=== PATIENT | female | born 1990 | race Caucasian/White ===

== ENCOUNTER 2022-12-07 14:56 | Outpatient (CLI) | payer BC, SELFPAY ==
--- NOTE | 2022-12-07 15:00 | CRLHL7_ITS ---
For Patients: As a result of the Century Cures Act, medical imaging exams and procedure reports are released immediately into your electronic medical record. You may view this report before your referring provider. If you have questions, please contact your health care provider. INDICATION: First trimester scan, establish dates. COMPARISON: None. TECHNIQUE: Real-time ochoa-scale imaging of the pelvis was performed. FINDINGS: Sonographic imaging demonstrates a single living intrauterine gestation. The embryo demonstrates a regular cardiac rate measuring 183 beats per minute. The embryo`s crown-rump length measurement of 1.9 cm corresponds to a gestational age of 8 weeks 3 days with a sonographic due date of 07/16/2023. There is a normal-appearing yolk sac. There are no gross abnormalities noted within the embryo at this early state of development. The gestational sac has a normal appearance. There is no evidence of a perigestational hemorrhage. The amount of fluid within the sac appears appropriate for gestational age. The cervix is closed. The myometrium appears normal. Corpus luteal cyst left ovary. Right ovary not visualized. There are no suspicious fluid collections noted in the cul-de-sac. IMPRESSION: Normal first trimester OB ultrasound exam. Gestational age calculated at 8 weeks 3 days with a sonographic due date of 07/16/2023. Dictated by Juan Pablo Ellis MD @ 12/08/2022 8:53:20 AM (Electronically Signed)
== END 2022-12-07 14:57 | disposition home or self-care (01) ==
LOC: US 14:57
PROVIDERS: Visit Provider Registered Nurse
DX: Z34.91 Encounter for supervision of normal pregnancy, unspecified, first trimester (principal); Z3A.08 8 weeks gestation of pregnancy
CPT/HCPCS: 76817; 82565; 82570; 84156; 84450; 84460; 84520; 86703; 86803; 86850; 86900; 86901; 87086; 87340; 87491; 87591

== ENCOUNTER 2022-12-07 16:24 | Outpatient (CLI) | payer BC, SELFPAY ==
[2022-12-07 21:28] LABS: Chlamydia DNA Amplified* NOT DETECTED (No Detected); GC DNA Amplified* NOT DETECTED (No Detected)
== END 2022-12-07 16:25 | disposition home or self-care (01) ==
PROVIDERS: Visit Provider Registered Nurse
DX: Z34.91 Encounter for supervision of normal pregnancy, unspecified, first trimester (principal); Z3A.08 8 weeks gestation of pregnancy
CPT/HCPCS: 82565; 82570; 84156; 84450; 84460; 84520; 86592; 86703; 86762; 86787; 86803; 86850; 86900; 86901; 87086; 87340; 87491; 87591

== ENCOUNTER 2023-02-25 12:04 | Outpatient (CLI) | payer BC, SELFPAY ==
--- NOTE | 2023-02-25 12:15 | CRLHL7_ITS ---
For Patients: As a result of the Century Cures Act, medical imaging exams and procedure reports are released immediately into your electronic medical record. You may view this report before your referring provider. If you have questions, please contact your health care provider. INDICATION: Evaluate anatomy. COMPARISON: 12/07/2022 TECHNIQUE: Real time ochoa scale imaging of the fetus was performed as well as color Doppler analysis of the umbilical vessels. FINDINGS: Sonographic imaging demonstrates a single living intrauterine gestation. Fetus demonstrates a regular cardiac rate of 145 beats per minute. Fetus has a variable position. The placenta lies anteriorly without evidence of placenta previa. The edge of the placenta is located 4 cm from the internal cervical os. Amniotic fluid volume appears normal. Single deepest vertical pocket: 4.6 cm. The cervix is closed and measures 4.1 cm in length. The composite ultrasound gestational age is calculated at 20 weeks 3 days with an estimated sonographic due date of 07/12/2023. The estimated weight is 381 grams which lies at the 88th %. The following biometric measurements were obtained: Biparietal diameter: 4.6 cm/20 weeks 0 days 48th% Head circumference: 17.5 cm/20 weeks 0 days 43rd% Abdominal circumference: 15.8 cm/20 weeks 6 days 75th% Femur length: 3.5 cm/21 weeks 0 day 78th% The HC/AC ratio measures: 1.11 range (1.07-1.25) On anatomic survey, there is a normal appearance of the cerebral ventricles, cavum septi pellucidi, cisterna magna and cerebellum. The nose and lips appear normal. The facial profile is not well visualized due to position. The cervical, thoracic and lumbar spine are well visualized and appear normal. There is a normal four-chamber heart view. The left and right ventricular outflow tracts are incompletely visualized. The diaphragm and stomach appear normal. The kidneys and bladder also appear normal. There is a normal three-vessel cord and cord insertion site. The four extremities appear normal. IMPRESSION: Concordance of clinical and sonographic dating. Incomplete visualization of the profile and outflow tracts. Remainder of the anatomic survey is normal. Short-term follow-up recommended. Dictated by Juan Pablo Ellis MD @ 02/25/2023 3:20:27 PM (Electronically Signed)
== END 2023-02-25 12:05 | disposition home or self-care (01) ==
LOC: US 12:05
PROVIDERS: Visit Provider Obstetrics & Gynecology
DX: Z34.91 Encounter for supervision of normal pregnancy, unspecified, first trimester (principal); Z3A.20 20 weeks gestation of pregnancy
CPT/HCPCS: 76805; 82565; 82570; 84156; 84450; 84460; 84520; 84550

== ENCOUNTER 2023-03-18 12:57 | Outpatient (CLI) | payer BC, SELFPAY ==
--- NOTE | 2023-03-18 13:00 | CRLHL7_ITS ---
For Patients: As a result of the Century Cures Act, medical imaging exams and procedure reports are released immediately into your electronic medical record. You may view this report before your referring provider. If you have questions, please contact your health care provider. INDICATION: elevation of levels of liver transaminase COMPARISON: none TECHNIQUE: Real time ochoa scale imaging and color Doppler analysis was performed of the right upper quadrant. FINDINGS: The liver measures 21.4 cm. No intrahepatic mass. Mildly coarsened hepatic echotexture. There is a normal appearance of the hepatic IVC and proximal abdominal aorta. There is no evidence of ascites. The gallbladder is of normal size and there is no evidence of intraluminal stones or sludge. The gallbladder wall measures 2 mm in thickness. The common bile duct is of normal size and measures 4 mm in diameter at the level of the criss hepatis. The visualized pancreas appears normal. There is no evidence of a stone or hydronephrosis within the right kidney. The right kidney measures 12.3 cm in length. IMPRESSION: Mild hepatic steatosis and hepatomegaly. Normal gallbladder. Dictated by Juan Pablo Ellis MD @ 03/18/2023 2:53:12 PM (Electronically Signed)
--- NOTE | 2023-03-18 14:00 | CRLHL7_ITS ---
For Patients: As a result of the Century Cures Act, medical imaging exams and procedure reports are released immediately into your electronic medical record. You may view this report before your referring provider. If you have questions, please contact your health care provider. INDICATION: Follow-up missed anatomy COMPARISON: 02/25/2023 TECHNIQUE: Real-time ochoa-scale imaging of the pelvis was performed. FINDINGS: Normal profile. heart rate 147 beats per minute. Amniotic fluid normal with single deepest pocket 4.7 cm. Placenta anterior. Normal LVOT and RVOT. IMPRESSION: Normal profile and outflow tracts. Dictated by Juan Pablo Ellis MD @ 03/18/2023 2:48:42 PM (Electronically Signed)
== END 2023-03-18 12:58 | disposition home or self-care (01) ==
LOC: US 12:58
PROVIDERS: Visit Provider Obstetrics & Gynecology
DX: O36.8390 Maternal care for abnormalities of the fetal heart rate or rhythm, unspecified trimester, not applicable or unspecified (principal); R74.01 Elevation of levels of liver transaminase levels; K76.0 Fatty (change of) liver, not elsewhere classified; R16.0 Hepatomegaly, not elsewhere classified; E11.9 Type 2 diabetes mellitus without complications; I10 Essential (primary) hypertension
CPT/HCPCS: 76705; 76816; 82570; 84156; 84450; 84460

== ENCOUNTER 2023-04-14 14:05 | Outpatient (CLI) | payer BC, SELFPAY | END 2023-04-14 14:06 | disposition home or self-care (01) | LOC: NFLDREF 04-15 13:11 | PROVIDERS: Visit Provider Obstetrics & Gynecology | DX: Z34.90 Encounter for supervision of normal pregnancy, unspecified, unspecified trimester (principal); R30.9 Painful micturition, unspecified | CPT/HCPCS: 86592; 87086 ==

== ENCOUNTER 2023-04-29 14:02 | Outpatient (CLI) | payer BC, SELFPAY ==
--- NOTE | 2023-04-29 14:00 | CRLHL7_ITS ---
For Patients: As a result of the Century Cures Act, medical imaging exams and procedure reports are released immediately into your electronic medical record. You may view this report before your referring provider. If you have questions, please contact your health care provider. INDICATION: Third trimester scan, evaluate growth. COMPARISON: 02/25/2023 TECHNIQUE: Real time ochoa scale imaging of the fetus was performed. FINDINGS: Sonographic imaging demonstrates a single living intrauterine gestation. Fetus demonstrates a regular cardiac rate of 141 beats per minute. Fetus has a transverse position. The placenta lies anteriorly. Amniotic fluid volume appears normal and there is a single deepest vertical pocket: 6.7 cm. The estimated weight is 1475gm which lies at the 71st %. On the prior OB ultrasound exam dated 02/25/2023 the estimated weight was at the 88th%. BPD 67th percentile. HC 81st percentile. AC 64th percentile. FL 61st percentile. The HC/AC ratio measures 1.11 range (0.97-1.19). IMPRESSION: Sonographic gestational age 30 weeks 1 day and sonographic due date 07/07/2023. Sonographic age 8 days ahead of the clinical age. Estimated weight 71st percentile. Abdominal circumference 64th percentile. Dictated by Juan Pablo Ellis MD @ 05/03/2023 10:10:12 AM (Electronically Signed)
== END 2023-04-29 14:03 | disposition home or self-care (01) ==
LOC: US 14:03
PROVIDERS: Visit Provider Obstetrics & Gynecology
DX: Z34.93 Encounter for supervision of normal pregnancy, unspecified, third trimester (principal); Z3A.30 30 weeks gestation of pregnancy
CPT/HCPCS: 76816; 82565; 82570; 84156; 84450; 84460; 84520

== ENCOUNTER 2023-05-19 12:07 | Outpatient (CLI) | payer BC, SELFPAY ==
--- NOTE | 2023-05-19 12:15 | CRLHL7_ITS ---
For Patients: As a result of the Century Cures Act, medical imaging exams and procedure reports are released immediately into your electronic medical record. You may view this report before your referring provider. If you have questions, please contact your health care provider. INDICATION: GESTATIONAL HTN COMPARISON: 04/29/2023 TECHNIQUE: Real time ochoa scale imaging of the fetus was performed. Without non-stress testing. FINDINGS: Sonographic imaging demonstrates a single living intrauterine gestation. Fetus demonstrates a regular cardiac rate of 142 beats per minute. Fetus has a vertex position. The amniotic fluid volume appears normal and there is a single deepest pocket measurement of 7.2 cm. The fetus was active and demonstrated normal breathing movements. There was normal flexion and extension of the trunk and extremities. IMPRESSION: Normal biophysical profile score of 8 out of 8. Dictated by Juan Pablo Ellis MD @ 05/19/2023 12:52:00 PM (Electronically Signed)
== END 2023-05-19 12:08 | disposition home or self-care (01) ==
LOC: US 12:08
PROVIDERS: Visit Provider Obstetrics & Gynecology
DX: O13.9 Gestational [pregnancy-induced] hypertension without significant proteinuria, unspecified trimester (principal)
CPT/HCPCS: 76819

== ENCOUNTER 2023-05-27 12:58 | Outpatient (CLI) | payer BC, SELFPAY ==
--- NOTE | 2023-05-27 13:00 | CRLHL7_ITS ---
For Patients: As a result of the Century Cures Act, medical imaging exams and procedure reports are released immediately into your electronic medical record. You may view this report before your referring provider. If you have questions, please contact your health care provider. INDICATION: GESTATIONAL HTN COMPARISON: 05/19/2023 TECHNIQUE: Real time ochoa scale imaging of the fetus was performed. Without non-stress testing. FINDINGS: Sonographic imaging demonstrates a single living intrauterine gestation. Fetus demonstrates a regular cardiac rate of 147 beats per minute. Fetus has a breech position. The amniotic fluid volume appears normal and there is a single deepest pocket measurement of 6.2 cm. The fetus was active and demonstrated normal breathing movements. There was normal flexion and extension of the trunk and extremities. IMPRESSION: Normal biophysical profile score of 8 out of 8. Dictated by Juan Pablo Ellis MD @ 05/27/2023 2:06:21 PM (Electronically Signed)
== END 2023-05-27 12:59 | disposition home or self-care (01) ==
LOC: US 12:58
PROVIDERS: Visit Provider Obstetrics & Gynecology
DX: O10.919 Unspecified pre-existing hypertension complicating pregnancy, unspecified trimester (principal)
CPT/HCPCS: 76819

== ENCOUNTER 2023-06-03 12:58 | Outpatient (CLI) | payer BC, SELFPAY ==
--- NOTE | 2023-06-03 13:00 | CRLHL7_ITS ---
For Patients: As a result of the Century Cures Act, medical imaging exams and procedure reports are released immediately into your electronic medical record. You may view this report before your referring provider. If you have questions, please contact your health care provider. INDICATION: Elevated BMI TECHNIQUE: Real time ochoa scale imaging of the fetus was performed. COMPARISON: 05/27/2023 FINDINGS: Sonographic imaging demonstrates a single living intrauterine gestation. Fetus demonstrates a regular cardiac rate of 134 beats per minute. Fetus has a vertex position. The placenta lies anteriorly. Amniotic fluid volume appears normal and there is a single deepest pocket of 7.3 cm. The estimated weight is 2669gm which lies at the 83rd %. On the prior OB ultrasound dated 04/29/2023 the estimated weight was at the 71st percentile. BPD 85th percentile. HC 64th percentile. AC 92nd percentile. FL 54th percentile. The fetus was active and demonstrated normal breathing movements. There was normal flexion and extension of the trunk and extremities. IMPRESSION: Normal biophysical profile score 8/8. Sonographic gestational age 35 weeks 3 days and sonographic due date 07/05/2023. Sonographic age 10 days ahead of the clinical age. Estimated age 83rd percentile. Abdominal circumference 92nd percentile. Dictated by Juan Pablo Ellis MD @ 06/03/2023 2:11:02 PM (Electronically Signed)
== END 2023-06-03 12:59 | disposition home or self-care (01) ==
LOC: US 12:59
PROVIDERS: Visit Provider Obstetrics & Gynecology
DX: O10.913 Unspecified pre-existing hypertension complicating pregnancy, third trimester (principal); O99.213 Obesity complicating pregnancy, third trimester; Z3A.35 35 weeks gestation of pregnancy
CPT/HCPCS: 76816; 76819

== ENCOUNTER 2023-06-10 13:00 | Outpatient (CLI) | payer BC, SELFPAY ==
--- NOTE | 2023-06-10 13:00 | CRLHL7_ITS ---
For Patients: As a result of the Century Cures Act, medical imaging exams and procedure reports are released immediately into your electronic medical record. You may view this report before your referring provider. If you have questions, please contact your health care provider. INDICATION: Chronic HTN, obesity COMPARISON: 06/03/2023 TECHNIQUE: Real time ochoa scale imaging of the fetus was performed. Without non-stress testing. FINDINGS: Sonographic imaging demonstrates a single living intrauterine gestation. Fetus demonstrates a regular cardiac rate of 133 beats per minute. Fetus has a vertex position. The amniotic fluid volume appears upper limits of normal versus mild polyhydramnios and there is a single deepest pocket measurement of 9.2 cm. TREVON 26.5 cm. The fetus was active and demonstrated normal breathing movements. There was normal flexion and extension of the trunk and extremities. IMPRESSION: Normal biophysical profile score of 8 out of 8. Upper limits of normal versus mild polyhydramnios TREVON 26.5 cm. Dictated by Juan Pablo Ellis MD @ 06/10/2023 2:13:43 PM (Electronically Signed)
== END 2023-06-10 13:01 | disposition home or self-care (01) ==
LOC: US 13:00
PROVIDERS: Visit Provider Obstetrics & Gynecology
DX: O10.919 Unspecified pre-existing hypertension complicating pregnancy, unspecified trimester (principal); O99.210 Obesity complicating pregnancy, unspecified trimester
CPT/HCPCS: 76819; 82565; 82570; 82947; 84156; 84450; 84460; 84520

== ENCOUNTER 2023-06-24 13:01 | Outpatient (CLI) | payer BC, SELFPAY ==
--- NOTE | 2023-06-24 13:00 | US_ITS ---
Patient: TWAN BONNER Facility:?[facility] Patient ID:?[id number] Site Patient ID:?[id number]. Site :?[id number] Study:?US-OB Pelvis OB BPP-06/24/2023 1:44:29 PM Ordering Physician:MAXIMILIAN DAVILA Final Report: INDICATION: Chronic hypertension and obesity TECHNIQUE: Limited transabdominal two-dimensional ochoa-scale ultrasound examination. COMPARISON: None FINDINGS: There is a living fetus oblique breech lie with gestational age of 37 weeks by LMP and EDC of 07/15/2023. The biophysical profile score is 8/8. The heart rate is measured at 140 beats per minute and the rhythm appears regular. Polyhydramnios is demonstrated with an TREVON of 32 cm as opposed to a reported value of 27 cm on the prior study 06/10/2023. The placenta is anterior and superior to the cervical os. There is no evidence of previa. IMPRESSION: 1. Living fetus in oblique breech lie with gestational age of 37 weeks by LMP and EDC of 07/15/2023. 2. Biophysical profile score is 8/8. 3. Polyhydramnios with TREVON of 32 cm as opposed to 27 cm on 06/10/2023. Dictated by Sudhakar Sánchez MD @ 06/25/2023 6:10:49 AM Signed by:?Sudhakar Sánchez MD @06/25/2023 6:10:49 AM (Electronic Signature)
== END 2023-06-24 13:02 | disposition home or self-care (01) ==
LOC: US 13:02
PROVIDERS: Visit Provider Obstetrics & Gynecology
DX: O10.913 Unspecified pre-existing hypertension complicating pregnancy, third trimester (principal); O99.213 Obesity complicating pregnancy, third trimester; Z3A.37 37 weeks gestation of pregnancy
CPT/HCPCS: 76819; 82565; 82570; 84156; 84450; 84460; 84520; 87081; 87653

== ENCOUNTER 2023-06-30 08:40 | Inpatient (IN) | payer BC, SELFPAY ==
[2023-06-30] VITALS (26 sets, daily range): BP systolic 95–143; BP diastolic 57–90; PULSE 59–144; RESP 16; TEMP 36.4–37; O2SAT 81–98; BMI 42.7
[2023-06-30] MEDS: TERBUTALINE 1 MG/ML INJ 0.25 MG SUBCUT (09:49)
[2023-06-30 10:59] LABS: Hemoglobin* 13.6 gm/dL (12.0-16.0); Mean Corpuscular HGB Conc 34 gm/dL (32-36); Mean Corpuscular Hemoglobin 30 pg (26-34); Mean Corpuscular Volume 89 fL (80-100); Platelet Count* 155 K/uL (140-440); Red Blood Count 4.49 m/uL (4.00-5.20); White Blood Count* 10.76 K/uL (4.50-11.00)
[2023-06-30 11:05] LABS: Slide Review Reflex No
[2023-06-30 11:06] LABS: Alanine Aminotransferase* 14 U/L (4-35); Aspartate Amino Transferase* 24 U/L (12-35); Blood Urea Nitrogen* 9 mg/dL (5-24); Creatinine* 0.4 mg/dL (0.5-1.5); Est. Creatinine Clearance* 212.97; Estimated Glomerular Filt Rate 136 ml/min
--- NOTE | 2023-06-30 11:19 | P.LDBA_ITS ---
Subjective History of Present Illness Narrative: Patient is being admitted to Labor and Delivery for delivery. She is a 33 year old -0-0-1 woman at 37 weeks, 6 days gestation. Fetus is in breech presentation. She had an unsuccessful attempt at external cephalic version today. She also has chronic hypertension complicating , requiring an increase in labetalol dose last week to 200 mg twice a day. On this dose, her blood pressures have been acceptably managed. Given the diagnosis of chronic hypertension complicating , requiring adjustment of medications, our plan is for primary low-transverse today. Her full history and physical was dictated by Dr. Jeong on 06/24/2023. Please see this for details. Specific Issues/Plans : Ismael Daughter: Jenn, 3 yrs old MaterniT 21: negative. It's a girl!! 1. BMI 39.4 A1c: 5.2 2. History of gestational hypertension Baseline preeclampsia labs normal. P/C 0.00 Rec. baby aspirin at 12 weeks 3. Chronic HTN Diagnosed on 02/25/2023 Currently taking: labetalol 100 mg BID, started 04/29/23- did not initially take Recommended initiation 06/10/2023 given blood pressure of 152/84 Increased to 200 mg BID on 06/24/23 02/25/2023: Normal mL, creatinine 0.4, ALT normal 14, AST elevated at 56. Protein:creatinine=0.2 Repeat 03/18/2023 with 24 hour urine: AST now normal, 24 hour urine protein normal. Home BP monitoring with goals less than 140/90 Serial growth US at 29 weeks: EFW 70.9%, AC 64.1%, BPD 66.5%, HC 80.6%, FL 61.3%. SDP 6.7 cm, transverse, anterior placenta. Weekly NST or BPP starting at 32 weeks Delivery recommendations: pending HTN control 4. Polyhydramnios * 06/10/2023: TREVON 26.5, SDP 9.2 cm * Moderate on 06/24: ASP 11, TREVON 31.8. 5. Unstable lie in 3rd trimester. Oblique / breech at 37 weeks. Discussed spinning babies, scheduled for ECV attempt: Failed COVID: Not vaccinated. Recommended. Flu Vaccine: Declines RSV: Declines Tdap: 05/19/23 OB - Problem Based A/P Additional Plan (1) Breech presentation, antepartum: Status: Acute Plan: In the setting of gestational exacerbation of chronic hypertension in at 37 weeks, 6 days gestation. Plan is for primary low-transverse today. We discussed risks of procedure, including bleeding/hemorrhage, infection, damage to internal organs, risks of thromboembolism, impact on future pregnancies, and likely postoperative restrictions and precautions as well as typical recovery. Consent form was reviewed with and signed by patient. (2) Polyhydramnios: Status: Acute (3) Chronic hypertension complicating or reason for care during : Status: Acute (4) : Status: Acute Delivery/Labor/Induction Plan Plan: Section OB Result Labs Labs: Complete blood count today with hemoglobin 13.6, platelets 155 BUN 9, creatinine 0.4 AST 24, ALT 14 Labs Blood Type: B (+) positive OB Exam Physical Exam Vital signs: Temp Pulse Resp BP Pulse Ox 98.6 F 93 16 118/72 83 L 06/30/23 08:47 06/30/23 09:07 06/30/23 08:47 06/30/23 09:07 06/30/23 08:43 Narrative: Physical exam: General: No acute distress Psych: Alert and oriented x3, full affect HEENT: Normocephalic, atraumatic Neck: No cervical adenopathy, no thyromegaly Heart: Regular rate and rhythm, no murmur rub or gallop Lungs: Clear to auscultation bilaterally Abdomen: Soft, nontender, gravid, breech presentation Lower extremities: No edema or erythema Pelvic exam: Deferred monitoring: Baseline 135, accelerations present, no decelerations, moderate variability
[2023-06-30] MEDS: LACTATED RINGERS 1000 ML 1,000 ML 1200 ML IV (12:36)
[2023-06-30] MEDS: CEFAZOLIN 1 GM inj 3 GM IVP (14:29)
--- NOTE | 2023-06-30 14:43 | SUR.OPER ---
Arterial cord blood gas drawn per doctor's verbal order. Sample given to OB nurse (Milagro) in OR. OB nurse stated that she would send the sample to the lab. OB nurse (Guadalupe) confirmed this action.
[2023-06-30] MEDS: LACTATED RINGERS 1000 ML 1,000 ML 125 ML IV (15:06)
--- NOTE | 2023-06-30 15:39 | W.PM.NB ---
Nerve Block Nerve Block Time Seen by Provider: 15:33 Date Seen: 06/30/23 Type of block requested by surgeon for post-operative analgesia: TAP Side: bilateral Time out performed: Yes Verification of patient name: Yes Verification of date of : Yes Site marking: site marked Name of person performing procedure: Mazin Continuous monitoring Was continuous monitoring of O2 sat, B/P, electronic device monitor, recorded every 15 minutes?: Yes Procedure Checklist: sterile prep, needles and gloves Ultrasound guided. Images saved: Yes Medications given in 5ml increments after negative aspiration: Marcaine %: 0.25 mL: 30 Needle gauge: 20 and Exparel mL: 10 Patient tolerated procedure well: Yes Additional comments: Needle noted between internal oblique and transversus abdominus. Local spread visualized Block Charges Block Charge (with Pro Fee): TAP Bilateral Use of Ultrasound Machine for Block: Yes- US Guidance/pain block
--- NOTE | 2023-06-30 15:39 | W.ANESCHARGE ---
Anesthesia Charges Start Date/Time Anesthesia Start Date: 06/30/23 Anesthesia Start Time: 14:12 Stop Date/Time Anesthesia Stop Date: 06/30/23 Anesthesia Stop Time: 15:44
--- NOTE | 2023-06-30 15:51 | W.ANESCHARGE ---
Anesthesia Charges Start Date/Time Anesthesia Start Date: 06/30/23 Anesthesia Start Time: 14:12 Stop Date/Time Anesthesia Stop Date: 06/30/23 Anesthesia Stop Time: 15:44
--- NOTE | 2023-06-30 15:52 | PM.OBPRCCS ---
Procedure Date of procedure: 06/30/23 Procedure Done: Global Will [facility] bill your pro fee for this procedure?: Yes Procedure Description: PREOPERATIVE DIAGNOSIS: 37 weeks, 6 days gestation Alexander breech presentation, converting spontaneously to cephalic presentation; lie noted after spinal but before incision Non-reassuring heart rate Polyhydramnios Chronic hypertension with gestational exacerbation POSTOPERATIVE DIAGNOSIS: as above PROCEDURE: Primary low-transverse section SURGEON: Elle Jeong MD ANESTHESIA: Spinal IV FLUIDS: 1000 mL crystalloid QBL: 825 mL Urine output: Approximately 50 mL FINDINGS: 1. Female , cephalic OA presentation, Apgars of 3, 8, and 8, weight 3775 g. Abundant, clear amniotic fluid. 2. Normal appearance to uterus, bilateral tubes and ovaries. COMPLICATIONS: None PROCEDURE IN DETAIL: Patient was taken to the operating room with IV running. She received cefazolin in preoperative prophylaxis. Spinal anesthesia was administered. Branch catheter was inserted. Vagina and perineum were prepped in the usual fashion. Center nurses struggled to find heart rate prior to prepping the abdomen. Given this difficulty, ultrasound was brought to the room and I have performed a brief bedside ultrasound revealing that fetus had converted spontaneously to cephalic lie, but was having a bradycardia with heart rate approximately in the 60s. Given this, the abdomen was prepped with only a splash of Betadine and patient was then draped. A low-transverse skin incision was made with a scalpel and carried through to the underlying layer of fascia with the scalpel. The subcutaneous fat was dissected off the underlying fascia bluntly. The fascia was nicked in the midline with a scalpel, and this incision was extended bluntly. The rectus muscles were in the midline. Peritoneum was identified and entered bluntly. Arsh O retractor was inserted and tightened down, providing excellent visualization of the lower uterine segment. The bladder reflection was found to be well below the planned site for hysterotomy. Low-transverse uterine incision was made with a scalpel. Incision was widened bluntly. The 's head was grasped through the hysterotomy, but initial attempts to deliver the or unsuccessful, likely due to the angle the patient's abdomen and subcutaneous fat. The Arsh O retractor was removed. Skin incision was extended laterally. After these actions, the 's head was then delivered with the help of fundal pressure. The remainder of the body delivered without incident. Cord was noted to be beneath the infant's had. Cord was clamped and cut immediately. Infant was handed off to attending pediatric provider. The placenta was delivered with gentle traction on the cord. The uterus was exteriorized and cleaned of all clots and debris with the dry lap pad. The hysterotomy was reapproximated with 0 Vicryl in a running, locked fashion. Second layer of the same suture was used in imbricating fashion to obtain hemostasis. Several additional [id number] sutures were required at the left aspect of the hysterotomy to obtain hemostasis. The adnexa were examined and noted to be normal in appearance. The uterus was returned to the abdomen. The abdomen was irrigated with sterile saline. The hysterotomy was reexamined and found to be hemostatic. The peritoneum was reapproximated with 2 0 Vicryl in a running fashion. The rectus muscles were examined and found to be hemostatic. The fascia was reapproximated with 0 Vicryl in a running fashion. Subcutaneous fat was irrigated and Bovie used on oozing vessels. The subcutaneous fat was reapproximated with 3 0 plain gut suture in an interrupted fashion. The skin was closed with a subcuticular stitch of 4-0 Monocryl. A silver dressing was applied above this. Patient tolerated procedure with difficulty due to suboptimal pain control. She was taken to recovery area in stable condition. Pathology: specimen obtained, sent to pathology Surgery Debrief Performed: Yes Surgery Debrief Comment: Verbally confirmed my request to send placenta to pathology and that cord gases were ordered.
--- NOTE | 2023-06-30 16:01 | P.PCN_ITS ---
Procedure Note Time Seen by Provider: :30 Date Seen: 06/30/23 Will [facility] bill your pro fee for this procedure?: Yes Pre-op diagnosis: Breech presentation at 37w6d gestation. Procedure: Preop diagnosis: 33-year-old 2 para 1 at 37 weeks 6 days gestation with fetus in samantha breech presentation. Postop diagnosis: Same with unsuccessful ECV Procedure: Attempted ECV Anesthesia: Nitrous gas Client Services Vice President: Saniya Morgan CNM Procedure: The patient was placed in the dorsal supine position with a slight recline. Large amount of ultrasound gel was placed on the patient's abdomen. An ultrasound was performed which showed the fetus in the samantha breech presentation with the body on the maternal right in head in the maternal right upper quadrant. My perinatal breastfeeding assistant put pressure on the head in I put pressure on the breech 1st to attempt a counter-clockwise roll without any movement of the breech or vertex. Two attempts at a clockwise wall were made but the patient was unable to tolerate any more attempts. The head moved from the right upper quadrant to left upper quadrant but the breech did not move from the midline in any of the 3 attempts. The heart rate was checked between each attempt at version and was noted to be in the 130s-140s. The patient tolerated this procedure with significant discomfort.
[2023-06-30] MEDS: SODIUM CHLORIDE 0.9 % (FLUSH) 10 ML SYRINGE IVF (21:29)
[2023-06-30] MEDS: KETOROLAC 30 MG/ML inj IVP (21:29)
[2023-06-30] MEDS: LABETALOL HCL 100 MG TABLET PO (22:45)
[2023-06-30] MEDS: ENOXAPARIN 40 MG/0.4 ML INJ SUBCUT (22:45)
[2023-07-01] VITALS (15 sets, daily range): BP systolic 94–105; BP diastolic 63–69; PULSE 71–81; RESP 15–18; TEMP 36.4–36.8; O2SAT 93–96
[2023-07-01] MEDS: KETOROLAC 30 MG/ML inj IVP ×4 (04:01→22:00)
[2023-07-01 07:10] LABS: Hemoglobin* 11.2 gm/dL (12.0-16.0)
--- NOTE | 2023-07-01 07:44 | PM.OBPNVD1 ---
OB - PN:Subj Subjective Date Seen: 07/01/23 Narrative: Yaneli is a 33 y.o. who was admitted to [facility] for breech version.? She had an uncomplicated primary .? ? The patient feels well.? The pain is well controlled with current medications.? She has no new complaints.? She is breast feeding and reports things are going well.? the patient has done well.? Vitals have been stable.? She has remained afebrile.? Has a good appetite, is tolerating a general diet.? She has not voided since last evening when the catheter was removed.? She is passing gas and has not had a bowel movement.? She is ambulating and denies any dizziness.? Has Small amount of rubra lochia.? OB - PN: Obj Exam Physical Exam: Vital signs: Temp Pulse Resp BP Pulse Ox O2 Del Method 97.8 F 71 18 94/64 95 Room Air 07/01/23 03:25 07/01/23 03:25 07/01/23 06:25 07/01/23 03:25 07/01/23 03:25 07/01/23 03:25 Narrative: GENERAL APPEARANCE:? normal affect, alert, no distress MOOD:? appropriate CHEST:? clear to auscultation HEART:? regular rate and rhythm ABDOMEN:? soft, non-tender the uterine fundus is firm At Umbilicus, Midline and is appropriate for the stage of recovery. EXTREMITIES:? normal and trace edema Incision: Silver nitrate dressing intact, no drainage noted Urinary Catheter Management: Urethral: Cath placed during this visit: yes Urethral indwelling: No Reason for continuing: surgical procedure Insertion date: 06/30/23 Insertion time: 14:22 OB - PN: Obj Data Labs Labs: Laboratory Results - last 24 hr 06/30/23 07/01/23 08:58 06:53 WBC 10.76 RBC 4.49 Hgb 13.6 11.2 L Hct 40.0 MCV 89 MCH 30 MCHC 34 Plt Count 155 BUN 9 Creatinine 0.4 L Estimated Creat Clear 212.97 Estimated GFR 136 AST 24 ALT 14 Blood Type B Positive Antibody Screen NEGATIVE OB - PN: A/P Delivery Assessment and Plan (1) Chronic hypertension complicating or reason for care during : Status: Acute (2) care and examination immediately after delivery: Status: Acute (3) Lactating mother: Status: Acute (4) Status post delivery: Status: Acute Plan day: 1 Plan: routine care Comments: Assessment/Plan?G 2 P 2 status post uncomplicated primary .? ?? 1.? Continue route PP cares? 2.? .? May see if desired? 3.? Anticipate discharge home tomorrow or the following day per pt preference? 4. Delayed voiding, encourage PO fluids, straight cath PRN, monitor output. ?
[2023-07-01] MEDS: DOCUSATE SODIUM 100 MG CAPSULE PO (09:49)
[2023-07-01 14:01] LABS: Hemoglobin* 11.1 gm/dL (12.0-16.0)
[2023-07-02] VITALS: BP 100/64; PULSE 81; RESP 17; TEMP 36.4; O2SAT 95; O2SAT 97
[2023-07-02] MEDS: IBUPROFEN 600 MG TABLET PO (02:11)
[2023-07-02 04:05] VITALS: BP 97/64; PULSE 81; RESP 18; TEMP 36.7; O2SAT 98
[2023-07-02 07:25] VITALS: BP 95/93; PULSE 74; RESP 16; TEMP 36.6; O2SAT 94
[2023-07-02] MEDS: DOCUSATE SODIUM 100 MG CAPSULE PO (07:41)
--- NOTE | 2023-07-02 08:47 | PM.GYNDS1 ---
DS: Providers Provider Date Seen: 07/02/23 Date of admission: 06/30/23 08:40 Primary care physician: Not a Local Provider Admitting Clinician: Carol Watkins MD Attending Physician on discharge: Bernadine Otero MD Date of Discharge: 07/02/23 DS: Diagnosis Discharge Diagnosis (1) Status post delivery: Status: Acute THERAPEUTIC RADIOLOGIST-Discharge Summary Hospital Course Hospital Course Narrative: Patient is a 33 year old G2 now P 2001 admitted on 06/30/23 for primary section. Indication for surgery: Breech, Nonreassuring heart tones, chronic HTN with gestational exacerbation. Intraoperative findings were notable for spontaneous conversion to vertex presentation after spinal. She had an uncomplicated surgery. Postoperative course has been uneventful. Vitals have been stable. She has remained afebrile. Today, on postoperative day 2, she reports the pain is well controlled. She has been able to ambulate Without difficulty. She is tolerating regular diet. She is passing flatus. Branch catheter has been removed, and she is voiding without difficulty. Normal lochia. Time Spent with Patient Time attestation: Total time spent providing and/or coordinating discharge services: Time spent: Less than 30 minutes THERAPEUTIC RADIOLOGIST - Exam Physical Exam: Vital signs: Temp Pulse Resp BP Pulse Ox O2 Del Method 97.8 F 74 16 95/93 H 94 Room Air 07/02/23 07:25 07/02/23 07:25 07/02/23 07:25 07/02/23 07:25 07/02/23 07:25 07/02/23 07:25 Constitutional: Constitutional: no acute distress Routine HEENT Exam: Head: Present normal inspection Routine Neck Exam: NECK: Present supple Routine Respiratory Exam: Respiratory: Present CTA bilaterally; Absent crackles, rhonchi or wheezes Routine Cardiovascular Exam: Cardiovascular: Present RRR; Absent murmur Routine Abdominal Exam: Abdominal: Present soft; Absent distended or tenderness Comments: Incision: silver Mepilex dressing in place, clean, dry Routine Extremities Exam: Extremities: Present normal inspection; Absent calf tenderness or pedal edema Routine Psychiatric Exam: Psychiatric: Present normal affect THERAPEUTIC RADIOLOGIST - DS: Data Data Completed and Pending Labs on day of discharge: Labs from last 24 hours 07/01/23 13:55 Hgb 11.1 L Procedures Procedures: Procedures Operation Date: 06/30/23 13:00 Actual Procedure Side Surgeon p Low transverse Primary Section Not Applicable Elle Jeong MD Discharge Plan Discharge Disposition: Home, Self-Care Date of Admission: 06/30/23 08:40 Attending Provider on Discharge: Bernadine Otero Primary Care Provider: Provider,Not a Local Condition: Stable Anticipated Discharge Date/Time: 07/02/23 08:52 Discharge Medications: New docusate sodium 100 mg Capsule 100 mg PO DAILY Qty: 30 0RF ibuprofen 600 mg Tablet 600 mg PO Q6H PRN (Reason: Pain) Qty: 30 0RF oxycodone 5 mg Tablet 5 - 10 mg PO Q4H PRN (Reason: Pain) Qty: 20 0RF Continued labetalol 100 mg tablet 100 mg PO Q12H Qty: 60 2RF DHA 200 mg capsule 200 mg PO DAILY Discharge Orders: Discharge Order (Routine); Ordered 07/02/23 Ordered By: Bernadine Otero Patient Education: OB Over the Counter Medication Information, OB /Breast Feeding Activity Level: Activity as Tolerated and No strenuous activity Discharge Diet: Regular Follow Up Appointments: Provider,Not a Local [Primary Care Provider] - Forms: [employer] Info Instructions
[2023-07-02] MEDS: ACETAMINOPHEN 500 MG TABLET 1000 MG PO (10:10)
== END 2023-07-02 12:40 | disposition home or self-care (01) | DRG 540 ==
PROVIDERS: Advanced Practice Midwife; Admitting Provider Obstetrics & Gynecology; Visit Provider Obstetrics & Gynecology
PROC: 10D00Z1 Extraction of Products of Conception, Low, Open Approach (ICD-10-PCS; CPT 59514; principal; 2023-06-30 12:45)
DX: O32.1XX0 Maternal care for breech presentation, not applicable or unspecified (principal); O99.214 Obesity complicating childbirth; E66.9 Obesity, unspecified; O16.4 Unspecified maternal hypertension, complicating childbirth; O40.3XX0 Polyhydramnios, third trimester, not applicable or unspecified; G89.18 Other acute postprocedural pain; Z3A.37 37 weeks gestation of pregnancy; Z37.0 Single live birth
CPT/HCPCS: 01961; 36415; 59412; 64488; 76942; 82565; 82570; 84156; 84450; 84460; 84520; 85018; 85025; 85027; 86850; 86900; 86901; 88307; A9270; C9290; J0665; J0690; J1100; J1650; J1885; J2274; J2371; J2405; J2590; J3010; J3105; J7120

== ENCOUNTER 2023-07-08 14:07 | Outpatient (CLI) | payer OTHER, SELFPAY | END 2023-07-08 14:08 | disposition home or self-care (01) | PROVIDERS: Visit Provider Obstetrics & Gynecology | DX: O10.93 Unspecified pre-existing hypertension complicating the puerperium (principal) | CPT/HCPCS: 82565; 82570; 84156; 84450; 84460; 84520; 84550 ==